=== PATIENT | male | born 1985 | race Caucasian/White ===

== ENCOUNTER 2018-11-06 13:35 | Emergency (ER) | payer MEDICAID ==
[~2018-11-06] VITALS: Ht 177.8 cm; Wt 79.4 kg
--- NOTE | 2018-11-06 14:15 | NUR ---
PT IS IN ROOM #2A. DR CANALES EVALUATED THE PT.
--- NOTE | 2018-11-06 15:20 | NUR ---
PT WAS D/C TO HOME. D/C INSTRUCTIONS GIVEN TO THE PT.
[2018-11-06 15:23] VITALS: BP 136/77
== END 2018-11-06 15:24 | disposition home or self-care (01) ==
LOC: ER 13:39
DX: S93.402A Sprain of unspecified ligament of left ankle, initial encounter (principal); X50.1XXA Overexertion from prolonged static or awkward postures, initial encounter; Y92.89 Other specified places as the place of occurrence of the external cause; Y99.8 Other external cause status; Y93.67 Activity, basketball
CPT/HCPCS: 73610; A4663